=== PATIENT | female | born 1980 | race African-American/Black ===

== ENCOUNTER → 2018-09-03 | Outpatient (CLI) | payer OTHER ==
[~2018-09-03] MED LIST: BACLOFEN 10MG T10 MG PO; FLEXERIL PO; IBUPROFEN 600600 M1 PO; IBUPROFEN 800800 MG PO; MACROBID 100 M100 M1 PO; NAPROSYN250 MG; NAPROSYN500 MG PO; NORCO 5-325 TA1 EACH PO; PERCOCET 5-3251 EACH PO; PROAIR HFA8.5 GM INH; PROTONIX40 M1 PO; PYRIDIUM100 MG PO; ULTRAM 50MG TAB50 MG PO
== END ==
LOC: MRI 09:55
DX: M22.42 Chondromalacia patellae, left knee (principal); R60.0 Localized edema

== ENCOUNTER 2018-12-04 13:24 | Inpatient (IN) | payer OTHER ==
[~2018-12-04] VITALS: Ht 170.2 cm; Wt 107.0 kg
[2018-12-04 13:57] VITALS: BP 193/113
[2018-12-04 13:57] LABS: URINE BILIRUBIN NEGATIVE (Negative); URINE BLOOD TRACE (Negative); URINE CLARITY CLEAR; URINE COLOR YELLOW; URINE GLUCOSE-RANDOM* NEGATIVE (Negative); URINE KETONES NEGATIVE (Negative); URINE LEUKOCYTES NEGATIVE (Negative); URINE NITRITE NEGATIVE (Negative); URINE PROTEIN (DIPSTICK) NEGATIVE (Negative)
[2018-12-04 15:19] LABS: ABSOLUTE NEUTROPHILS 4.2 thou/uL (1.4-8.2); BASOPHILS 0.9 % (0.0-2.0); EOSINOPHILS 0.6 % (0.0-3.0); HEMATOCRIT 43.8 % (37.0-47.0); HEMOGLOBIN 14.8 gm/dL (12.0-15.0); LYMPHOCYTES 41.8 % (24.0-44.0); MCH 29.6 pg (26.0-34.0); MCHC 33.9 g/dL (28.0-37.0); MCV 87.4 fL (80.0-100.0); MONOCYTES 6.6 % (1.0-8.0); PLATELET COUNT 291 thou/uL (150-400); POLYS 50.1 % (36.0-66.0); RBC 5.01 mil/uL (4.20-5.00); RDW 13.7 % (10.5-14.5); WBC 8.5 thou/uL (4.0-11.0)
[2018-12-04 15:33] LABS: ANION GAP 12 mmol/L (7-16); BUN 5 mg/dL (7-18); CALCIUM 9.2 mg/dL (8.5-10.1); CHLORIDE 105 mmol/L (98-107); CO2 26 mmol/L (21-32); CREATININE 0.7 mg/dL (0.6-1.0); GLUCOSE 98 mg/dL (74-106); SODIUM 143 mmol/L (136-145)
[2018-12-04 15:40] LABS: ALBUMIN 3.5 g/dL (3.4-5.0); DIRECT BILIRUBIN < 0.1 mg/dL (<0.1-0.3); SGOT 28 U/L (15-37); SGPT 30 U/L (30-65); TOTAL BILIRUBIN 0.3 mg/dL (<0.1-1.0); TOTAL PROTEIN 7.8 g/dL (6.4-8.2)
[2018-12-04 17:45] LABS: CHOLESTEROL 279 mg/dL (<200); HDL CHOLESTEROL 50 mg/dL (>40); LDL CHOLESTEROL 208 mg/dL (<100); TC:HDL 5.6 Ratio (Not establshd); TRIGLYCERIDE 105 mg/dL (<150); VLDL 21 mg/dL (<40)
[2018-12-04 18:12] VITALS: BP 164/90
[2018-12-04 18:26] VITALS: BP 164/85
--- NOTE | 2018-12-04 18:52 | NUR ---
PT ARRIVED ON UNIT AT 18:35. PT. GREETED, GIVEN BOXED LUNCH AND FALL RISK PRECAUTIONS PUT IN PLACE.
[2018-12-04 19:35] VITALS: BP 129/88
--- NOTE | 2018-12-05 01:48 | NUR ---
PT ORIENTATED TO ROOM AND CALL LIGHT PT PROVIDED INFO FOR HEALTH HX PT GIVEN NORCO FOR PAIN PT SLEPT MOST OF THE NIGHT NO ISSUES OVERNIGHT.
[2018-12-05 03:00] VITALS: BP 138/93
[2018-12-05 08:00] VITALS: BP 136/91
[2018-12-05 16:28] VITALS: BP 124/79
--- NOTE | 2018-12-05 17:21 | NUR ---
PT VITAL SIGNS STABLE THROUGHOUT SHIFT. PT STARTED ON AMLODIPINE WHICH SHE TOLERATED WELL. DR. RUTHERFORD ORDERED MRI/MRA HOWEVER RADIOLOGY ADVISED THEY DO NOT PERFORM BRAIN MRI'S ON WEEKEND UNLESS ORDERED STAT BY NEUROLOGIST. CAONSULTED DR. HEART WHO WILL SEE PT ON FRIDAY. PT AGREEABLE TO STAY UNTIL SHE SEES DR. HEART. PT HAD NO C/O DIXXINESS OR LIGHT HEADEDNESS, HOWEVER SHE STILL HAS MILD HEADACE WHICH WAS TREATED WITH MEDICATION SUCCESSFULLY. PT RESTING COMFORTABLY.
--- NOTE | 2018-12-05 18:41 | EKG ---
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1980 Requested By: Gene Sapp Order Number: [id number] MD: Figueroa Basilio Measurements Intervals [place] Rate: 72 P: 53 VT: 178 QRS: 53 QRSD: 88 T: 38 QT: 390 QTc: 427 Interpretive Statements Sinus rhythm Early transition Nonspecific ST-T wave changes Compared to ECG 01/03/2016 21:43:42 no significant changes Electronically Signed On 12-05-2018 18:41:16 CDT by Figueroa Basilio [email or web address] ��������������������������������������������� <ELECTRONICALLY SIGNED> ���������������������������������������� By: Figueroa Basilio MD ��������������������������������������������� 12/05/18 1841 1348 134 Figueroa Basilio MD /EPI
[2018-12-05 19:29] VITALS: BP 133/64
--- NOTE | 2018-12-06 03:54 | NUR ---
PT DID NOT COMPLAIN OF ANY PAIN DURING THE NIGHT OR NAUSEA PT USED CALL LIGHT EFFECTIVELY NO ISSUES OVERNIGHT.
[2018-12-06 05:32] VITALS: BP 113/69
[2018-12-06 07:50] VITALS: BP 118/69
[2018-12-06 10:33] VITALS: BP 118/69
[2018-12-06] MEDS ORDERED: NORVASC10 MG PO (10:57)
--- NOTE | 2018-12-06 11:29 | NUR ---
DIS PT DC'D THIS AM, TELE AND IV DC'D. MED SCRIPTS AND DC PACKET PROVIDED.
== END 2018-12-06 12:48 | disposition home or self-care (01) | DRG 103 ==
LOC: ER 13:24 → EROBS 17:26 → 4W 18:29
PROVIDERS: Nurse Practitioner; ADMIT Hospitalist
DX: G43.909 Migraine, unspecified, not intractable, without status migrainosus (principal); R27.0 Ataxia, unspecified; M76.60 Achilles tendinitis, unspecified leg; I10 Essential (primary) hypertension; Z79.899 Other long term (current) drug therapy; Z82.49 Family history of ischemic heart disease and other diseases of the circulatory system; Z82.3 Family history of stroke
CPT/HCPCS: 10045

== ENCOUNTER 2019-05-23 11:29 | Emergency (ER) | payer OTHER ==
[~2019-05-23] VITALS: Ht 170.2 cm; Wt 106.6 kg
[~2019-05-23 11:29] MED LIST changes: +NORVASC10 MG PO
[2019-05-23 12:25] LABS: CALCIUM 9.2 mg/dL (8.5-10.1); CREATININE 0.8 mg/dL (0.6-1.0); POTASSIUM 3.8 mmol/L (3.5-5.1)
[2019-05-23 13:13] VITALS: BP 126/79
--- NOTE | 2019-05-25 13:57 | EKG ---
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1980 Requested By: Cl Rayo Order Number: [id number] MD: Parveen Irby Measurements Intervals [place] Rate: 77 P: 43 [place]: 168 QRS: 37 QRSD: 92 T: 17 QT: 409 QTc: 463 Interpretive Statements Sinus arrhythmia Ventricular premature complex Baseline wander in lead(s) II,III,aVF Compared to ECG 12/04/2018 13:48:31 Ventricular premature complex(es) now present Sinus rhythm no longer present ST (T wave) deviation no longer present Electronically Signed On 05-25-2019 13:56:48 CDT by Parveen Irby [email or web address] <ELECTRONICALLY SIGNED> By: Parveen Irby MD 05/25/19 1356 1141 1141 Parveen Irby MD /EPI
== END 2019-05-23 13:13 | disposition home or self-care (01) ==
LOC: ER 11:29
PROVIDERS: Emergency Medicine
DX: I49.3 Ventricular premature depolarization (principal); R00.2 Palpitations; I10 Essential (primary) hypertension; Z98.890 Other specified postprocedural states

== ENCOUNTER 2020-05-12 20:50 | Emergency (ER) | payer OTHER ==
[~2020-05-12] VITALS: Ht 172.7 cm; Wt 105.2 kg
[2020-05-12] MEDS ORDERED: ADIPEX-P37.5 MG PO (20:57)
[2020-05-12 23:30] LABS: ABSOLUTE NEUTROPHILS 5.5 thou/uL (1.4-8.2); BASOPHILS 0.9 % (0.0-2.0); EOSINOPHILS 0.5 % (0.0-3.0); HEMATOCRIT 41.4 % (37.0-47.0); HEMOGLOBIN 14.1 gm/dL (12.0-15.0); LYMPHOCYTES 36.4 % (24.0-44.0); MCH 30.2 pg (26.0-34.0); MCHC 34.1 g/dL (28.0-37.0); MCV 88.6 fL (80.0-100.0); MONOCYTES 7.2 % (1.0-8.0); PLATELET COUNT 270 thou/uL (150-400); RBC 4.67 mil/uL (4.20-5.00); RDW 13.5 % (10.5-14.5)
[2020-05-12 23:35] LABS: CALCIUM 8.6 mg/dL (8.5-10.1); CREATININE 0.8 mg/dL (0.6-1.0); POTASSIUM 3.2 mmol/L (3.5-5.1)
[2020-05-12 23:41] LABS: ALBUMIN 3.5 g/dL (3.4-5.0); DIRECT BILIRUBIN 0.1 mg/dL (<0.1-0.2); TOTAL BILIRUBIN 0.5 mg/dL (0.2-1.0); TOTAL PROTEIN 7.3 g/dL (6.4-8.2)
[2020-05-13 00:45] VITALS: BP 146/83
--- NOTE | 2020-05-14 16:35 | EKG ---
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
== END 2020-05-13 00:46 | disposition home or self-care (01) ==
LOC: ER 20:50
PROVIDERS: Emergency Medicine
DX: R06.00 Dyspnea, unspecified (principal); Z79.899 Other long term (current) drug therapy